=== PATIENT | male | born 1965 ===

== ENCOUNTER 2017-04-23 08:29 | Day surgery (SDC) | payer SELFPAY ==
[2016-05-18 10:22] VITALS: BMI 25.1
[2017-04-23] MEDS ORDERED: Propofol 10 mg/ml Inj (20 ML) ONE ×2 (10:03→10:12)
[2017-04-23] MEDS ORDERED: Midazolam 2 MG/2 ML VIAL ONE (10:12)
[2017-04-23] MEDS ORDERED: Simethicone 40 mg/0.6 ml Liquid (30 ml) ONE ×2 (10:13)
[2017-04-23 10:43] VITALS: TEMP 98.4
[2017-04-23 11:04] VITALS: RESP 15
[2017-04-23 11:38] VITALS: BP 102/52; PULSE 55
[2017-04-23 11:42] VITALS: O2SAT 99
== END 2017-04-23 11:44 | disposition home or self-care (01) ==
LOC: C.ENDO 08:29
PROVIDERS: ATTEND Internal Medicine Gastroenterology
DX: Z12.11 Encounter for screening for malignant neoplasm of colon (principal); K64.8 Other hemorrhoids
CPT/HCPCS: 45378; J2250; J2704

== ENCOUNTER 2017-10-11 07:44 | Day surgery (SDC) | payer OTHER ==
[2017-09-25 10:07] VITALS: BMI 27.6
[2017-10-11] MEDS ORDERED: Midazolam 2 MG/2 ML VIAL ONE (09:15)
[2017-10-11] MEDS ORDERED: Propofol 10 mg/ml Inj (20 ML) ONE ×2 (09:15→12:12)
[2017-10-11] MEDS ORDERED: Bupivacaine-Epi 0.5%-1:200,000 PF Inj IJ ONE (09:40)
[2017-10-11] MEDS ORDERED: ceFAZolin 1 gm in NS 2 GM/200 ML BAG IVPB ONE (09:53)
[2017-10-11] MEDS: Bupivacaine-Epi 0.5%-1:200,000 PF Inj IJ ONE ×2 (11:48→12:24)
[2017-10-11] MEDS ORDERED: HYDROmorphone 0.5 mg/0.5 ml ISec IVP PRN (12:46)
--- NOTE | 2017-10-11 12:48 | PCM.SURG1 ---
Surgeon's Initial Post Op Note - Surgeon's Notes Surgeon: Dr. Live Distribution Coordinator: Dr. Ram PGY2 Type of Anesthesia: IV Sedation, Local Pre-Operative Diagnosis: Right lower abdominal wall lipoma Operative Findings: See operative dictation Post-Operative Diagnosis: Right lower abdominal wall lipoma Operation Performed: Exscision of right lower abdominal wall lipoma Specimen/Specimens Removed: Lipoma Estimated Blood Loss: EBL {In ML}: 10 Blood Products Given: N/A Drains Used: No Drains Post-Op Condition: Good Date of Surgery/Procedure: 10/11/17 Time of Surgery/Procedure: 12:48
--- NOTE | 2017-10-11 12:53 | CP.SDSHP ---
Same Day Surgery H & P - History Proposed Procedure: Paper H&P in chart - Allergies Allergies: Allergies No Known Allergies Allergy (Verified 05/18/16 09:27) - Physical Exam Vital Signs: Vital Signs 10/11/17 07:53 Temperature 97.6 F Pulse Rate 73 Respiratory 20 Rate Blood Pressure 127/83 O2 Sat by Pulse 96 Oximetry Short Stay Discharge - Short Stay Discharge Admitting Diagnosis/Reason for Visit: LIPOMA ABDOMINAL WALL Disposition: HOME/ ROUTINE Follow-up: You need to call your surgeons office a few days after being discharged and schedule a follow appointment to see him/her in clinic 2-3 weeks from the date of your operation. Instructions: Lipoma Additional Instructions (Diet, Activity): After Surgery Expect to go home after surgery, so plan for a friend/family member to drive you home. No alcohol for 24 hours or while taking pain medicine. Do not make any personal or business decisions for 24 hours. Showering It is OK to shower starting around 36 hours after surgery. You can apply soap and water above your incisions but do not scrub directly over your skin incisions. Gently pat- dry wound area with a soft clean towel. For Wound Care Your incisions have been closed with dissolvable suture on the inside and a special skin glue over the incision. The skin glue will dissolve so do not attempt to remove it from your skin. Do not expose your incisions to soaking in water (i.e. hot tub, bathtub or swimming pools) for the first 6 weeks after surgery. Do not put any ointment or creams over the incisions for the first 6 weeks after surgery or while the incision is open, draining or scabbed. For Pain You should resume taking all of your usual home medications, unless told otherwise Take 400-600mg of Ibuprofen every 4-6 hours regularly for the first 3 days this will help with pain and reduce swelling.
[2017-10-11 13:54] VITALS: RESP 18
[2017-10-11 14:34] VITALS: BP 131/69; PULSE 77; TEMP 97.9; O2SAT 100
--- NOTE | 2017-10-11 23:55 | OP ---
PROCEDURE DATE: 10/11/2017 PREOPERATIVE DIAGNOSIS: Soft tissue mass of lower abdominal wall. POSTOPERATIVE DIAGNOSIS: Right lower abdomen lipoma. PROCEDURE PERFORMED: Excision of lipoma, right lower abdomen. OPERATING SURGEON: Christy Live MD METAL CLEANER SURGEON: Aniket Ram. ANESTHESIA: Sedation and 0.5% Marcaine local anesthesia. COMPLICATIONS: None. ESTIMATED BLOOD LOSS: 10. SPECIMENS: Abdominal wall lipoma(3x6cm) OPERATIVE FINDINGS: Include a 3 x 6 cm mass of adipose tissue, most likely representing lipoma which was present on the patient's right lower abdomen, just below the level of the umbilicus. The lipoma did track deeper and was felt on examination and final measures were about 6 cm. No muscle involvement was encountered. INDICATIONS: This is a 52-year-old male with a history of lump on his right lower abdomen for the last few years that has grown in size over the last 6 months or 1 year and has become somewhat bothersome as this is approximately at the belt line, and he wished to have this removed for symptoms as well as for cosmetic reasons. The risks, benefits, complications of the procedure including but not limited to bleeding, infection, risk of seroma formation were discussed with the patient, and informed consent was obtained prior to the operation. DESCRIPTION OF PROCEDURE: The patient was then taken to the operating room, placed supine on the operating room table with his arms out on armboard. Safety strap was then applied across his thighs; 1% gm of Ancef was given 30 minutes prior to incision. Anesthesia then administered sedation using fentanyl and propofol which he tolerated well. Abdominal hair removal was performed with a shaver, and the lower half of the abdomen was prepped and draped in sterile fashion. A time-out was performed prior to incision. The borders of the soft tissue mass in the right lower abdomen were marked with a marker. Next, approximately 20 mL of 0.5% Marcaine with epinephrine was used to locally anesthetize the skin directly overlying the mass. Next, a 15-blade scalpel was used to make approximately 3 cm horizontal skin incision over the soft tissue mass and taken down through the dermis, exposing the subcutaneous tissue readily, and there was aforementioned fatty tissue immediately below that layer. The lipomatous mass was then easily excised with a combination of blunt dissection with electrocautery. Again, this was expressed from the wound more deeply, measuring about 6 cm. It was easily delivered with into the wound, and we transacted the remainder of the tissue from the alveolar surrounding tissue as lipoma which measured approximately 3 x 6 cm in total, was clearly removed. Hemostasis was obtained. The wound was then copiously irrigated with normal saline and again hemostasis was then confirmed, 2-0 Vicryl interrupted subcutaneous sutures were then placed, and the skin was reapproximated utilizing a 4-0 Monocryl suture, and Dermabond was placed on the skin. We then placed a compression dressing consisting of 4 x 4s and tape above that. Once the Dermabond was dried, all lap and instrument counts were correct at the end of the case. The patient tolerated the procedure well. Sedation was then reversed and the patient was transferred from the operating room table to the [facility] and taken to the postoperative care unit in stable condition. I was present for the entirety of the operation. Christy Live MD MTDD
== END 2017-10-11 14:15 | disposition home or self-care (01) ==
LOC: C.SDS 07:44
PROVIDERS: ATTEND Surgery
DX: D17.1 Benign lipomatous neoplasm of skin and subcutaneous tissue of trunk (principal); J44.9 Chronic obstructive pulmonary disease, unspecified; N40.0 Benign prostatic hyperplasia without lower urinary tract symptoms; Z79.899 Other long term (current) drug therapy
CPT/HCPCS: 11406; 88304; J0690; J1885; J2250; J2704; J3010